=== PATIENT | female | born 1995 ===

== ENCOUNTER 2022-06-11 14:57 | Outpatient (CLI) | payer OTHER | END 2022-06-11 17:14 | disposition home or self-care (01) | LOC: PRENATAL 14:57 | PROVIDERS: ATTEND Obstetrics & Gynecology Maternal & Fetal Medicine | DX: O35.9XX0 Maternal care for (suspected) fetal abnormality and damage, unspecified, not applicable or unspecified (principal); O35.3XX0 Maternal care for (suspected) damage to fetus from viral disease in mother, not applicable or unspecified; O28.1 Abnormal biochemical finding on antenatal screening of mother; Z3A.25 25 weeks gestation of pregnancy ==

== ENCOUNTER 2022-08-06 13:18 | Outpatient (CLI) | payer OTHER | END 2022-08-06 14:39 | disposition home or self-care (01) | LOC: PRENATAL 13:18 | PROVIDERS: ATTEND Obstetrics & Gynecology Maternal & Fetal Medicine | DX: O26.849 Uterine size-date discrepancy, unspecified trimester (principal); O36.8199 Decreased fetal movements, unspecified trimester, other fetus; O24.419 Gestational diabetes mellitus in pregnancy, unspecified control; Z3A.33 33 weeks gestation of pregnancy ==